=== PATIENT | male | born 1980 | race Caucasian/White ===

== ENCOUNTER 2019-12-29 20:22 | Emergency (ER) | payer SELFPAY ==
--- NOTE | 2019-12-29 21:30 | RAD ---
LEFT ELBOW: 12/29/19 Four views. HISTORY: Elbow pain. No fracture. No significant joint effusion. There is a subtle density seen adjacent to the medial hum eral condyle which could represent a subtle avulsion injury. Recommend clinical correlation regarding tenderness along the medial condyle. IMPRESSION: 1. No acute fracture. 2. Subtle density adjacent to the medial epicondyle of the distal humerus. POS: [facility]
== END 2019-12-29 22:26 | disposition home or self-care (01) ==
LOC: ERS 20:22
DX: S42.462A Displaced fracture of medial condyle of left humerus, initial encounter for closed fracture (principal); F17.210 Nicotine dependence, cigarettes, uncomplicated; W17.89XA Other fall from one level to another, initial encounter
CPT/HCPCS: 24576

== ENCOUNTER 2021-06-20 22:45 | Emergency (ER) | payer OTHER, SELFPAY ==
[2021-06-20] MEDS ORDERED: Morphine 10 MG/ML VIAL ONE (22:53)
[2021-06-20 23:17] LABS: #Basophils 0.1 thou/uL (0.0-0.2); #Eosinphils 0.1 thou/uL (0.0-0.7); #Lymphocytes 3.4 thou/uL (1.20-3.40); #Monocytes 0.7 thou/uL (0.11-0.59); #Neutrophils 2.8 thou/uL (1.40-6.50); %Eosinophils 1.9 % (0.0-10.0); %Lymphocytes 48.4 % (21.0-51.0); %Monocytes 9.3 % (0.0-10.0); %Neutrophils 39.5 % (42.0-75.0); Hemoglobin 17.1 g/dL (14.0-18.0); Mean Corpuscular HGB CONC 33.6 g/dL (32.0-36.0); Mean Corpuscular Volume 92.3 fL (78.0-98.0); Platelet Count 274 thou/uL (130-400); RBC Distribution Width 11.5 % (11.5-14.5); Red Blood Cell (RBC) Count 5.51 mill/uL (4.70-6.10)
[2021-06-20 23:38] LABS: ALT (SGPT) 35 U/L (8-55); AST (SGOT) 27 U/L (5-34); Albumin 4.5 g/dL (3.5-5.0); Alkaline Phosphatase 72 U/L (40-110); Anion Gap 19 mmol/L (10-20); BUN (Urea Nitrogen) 8 mg/dL (8.9-20.6); Bilirubin, Total 0.8 mg/dL (0.2-1.2); Calc. Creatinine Clearance 0 mL/min (70-130); Calcium 8.7 mg/dL (7.8-10.44); Carbon Dioxide 21 mmol/L (22-29); Chloride 105 mmol/L (98-107); Globulin 3.2 g/dL (2.4-3.5); Glucose 105 mg/dL (70-105); Potassium 4.1 mmol/L (3.5-5.1); Protein, Total 7.7 g/dL (6.0-8.3); Sodium 141 mmol/L (136-145)
[2021-06-21 00:04] LABS: Magnesium 2.3 mg/dL (1.6-2.6); Phosphorus 4.4 mg/dL (2.3-4.7)
== END 2021-06-21 00:02 | disposition home or self-care (01) ==
LOC: ERS 22:45
DX: S82.822A Torus fracture of lower end of left fibula, initial encounter for closed fracture (principal); S93.05XA Dislocation of left ankle joint, initial encounter; F17.210 Nicotine dependence, cigarettes, uncomplicated; W01.0XXA Fall on same level from slipping, tripping and stumbling without subsequent striking against object, initial encounter
CPT/HCPCS: 27810; 36415; 70450; 71045; 72125; 80053; 83735; 84100; 85025; 96372; J2270